=== PATIENT | male | born 1965 | race Caucasian/White ===

== ENCOUNTER 2020-03-09 07:33 | Day surgery (SDC) | payer BC ==
[~2020-03-09 07:33] MED LIST: Bupivacaine 0.25% 10 ML SDV ONE; Lactated Ringers 1,000 ML IV SCH; Lidocaine 2% 5 ML SDV ONE; Midazolam 1 MG/ML 2 ML SDV ONE; Ondansetron 4 MG/2 ML SDV ONE; Propofol 200 MG/20 ML SDV ONE; Sodium Chloride 0.9% 10 ML SDV IV PRN; Sodium Chloride 0.9% 10 ML Syringe FLUSH PRN; Sodium Chloride 0.9% 2.5 ML Syringe FLUSH PRN; ceFAZolin 2 GM in Premix Bag 1 BAG IV ONE; fentaNYL 250 MCG/5 ML SDV ONE
--- NOTE | 2020-03-09 08:06 | PCM.PREANE ---
Preanesthetic Assessment - Anesthesia/Transfusion/Family Hx Anesthesia History: Prior Anesthesia Without Reaction Family History of Anesthesia Reaction: No Transfusion History: No Prior Transfusion(s) - Review of Systems General: No Symptoms Pulmonary: No Symptoms Cardiovascular: No Symptoms Gastrointestinal: No Symptoms Neurological: No Symptoms Other: Reports: None - Physical Assessment NPO Status Date: 03/08/20 Height: 6 ft 3 in Weight: 121.109 kg ASA Class: 2 Mental Status: Alert & Oriented x3 Airway Class: Mallampati = 2 Dentition: Reports: Normal Dentition ROM/Head Extension: Full Lungs: Clear to Auscultation, Normal Respiratory Effort Cardiovascular: Regular Rate, Regular Rhythm - Lab Values: Laboratory Last Values SARS-CoV-2 RNA (ATIF) NEGATIVE (NEGATIVE) 03/09/20 05:58 - Allergies Allergies/Adverse Reactions: Allergies Allergy/AdvReac Type Severity Reaction Status Date / Time No Known Allergies Allergy Verified 03/04/20 08:47 - Acknowledgements Anesthesia Type Planned: General Anesthesia Pt an Appropriate Candidate for the Planned Anesthesia: Yes Alternatives and Risks of Anesthesia Discussed w Pt/Guardian: Yes Pt/Guardian Understands and Agrees with Anesthesia Plan: Yes Additional Comments: PMH: hx of afib x 2 yrs, in sinus rythem today, on metopralol, no anticoagulation except ASA, reports serious snoring but no prior dx of MAYURI. PLAN: ga/lma PreAnesthesia Questionnaire HEENT History: Reports: Allergic Rhinitis, Other (See Below) Other HEENT History: hx fx nose Cardiovascular History: Reports: Afib, Hypertension Other Cardiovascular History: A-fib in the past, no recent problems Respiratory History: Reports: Asthma, Other (See Below) Other Respiratory History: sports induced asthma Gastrointestinal History: Reports: None Genitourinary History: Reports: None Musculoskeletal History: Reports: Fracture Other Musculoskeletal History: hx fx wrist, ankle, toes and fingers Neurological History: Reports: None Psychiatric History: Reports: None Endocrine/Metabolic History: Reports: Obesity/BMI 30+ Hematologic History: Reports: None Immunologic History: Reports: None Oncologic (Cancer) History: Reports: None Dermatologic History: Reports: None - Past Surgical History Head Surgeries/Procedures: Reports: None HEENT Surgical History: Reports: Naso-Sinus Surgery Cardiovascular Surgical History: Reports: None Respiratory Surgical History: Reports: None GI Surgical History: Reports: Hernia, Inguinal Other GI Surgeries/Procedures: hx keyonna inguinal hernia repair Male Surgical History: Reports: Vasectomy Endocrine Surgical History: Reports: None Neurological Surgical History: Reports: None Musculoskeletal Surgical History: Reports: Arthroscopic Knee, Other (See Below) Other Musculoskeletal Surgeries/Procedures:: hx ulnar nerve reimplantation, hx knee arthroscopy Oncologic Surgical History: Reports: None Dermatological Surgical History: Reports: None - SUBSTANCE USE Tobacco Use Status *Q: Former Tobacco User Tobacco Use Within Last Twelve Months: Other (See Below) - HOME MEDS Home Medications: Home Meds Aspirin [Adult Aspirin Regimen] 81 mg PO DAILY 03/04/20 [History] Cholecalciferol (Vitamin D3) [Vitamin D3] 10,000 units PO DAILY 03/04/20 [History] Metoprolol Tartrate 25 mg PO DAILY 03/04/20 [History] - CURRENT (IN HOUSE) MEDS Current Meds: Current Medications Lactated Ringer's (Ringers, Lactated) 1,000 mls @ 100 mls/hr IV ASDIRECTED KODAK Sodium Chloride (Saline Flush) 10 ml FLUSH ASDIRECTED PRN PRN Reason: Keep Vein Open Sodium Chloride (Saline Flush) 2.5 ml FLUSH ASDIRECTED PRN PRN Reason: Keep Vein Open Sodium Chloride (Normal Saline) 10 ml IV ASDIRECTED PRN PRN Reason: IV Use Discontinued Medications Bupivacaine HCl (Sensorcaine-Mpf 0.25%) Confirm Administered Dose 10 ml .ROUTE .STK-MED ONE Stop: 03/09/20 07:28 Fentanyl (Sublimaze) Confirm Administered Dose 250 mcg .ROUTE .STK-MED ONE Stop: 03/09/20 07:08 Cefazolin Sodium/Dextrose 2 gm (/ Premix) 50 mls @ 100 mls/hr IV ONETIME ONE Stop: 03/09/20 00:30 Lidocaine (Xylocaine-Mpf 2%) Confirm Administered Dose 5 ml .ROUTE .STK-MED ONE Stop: 03/09/20 07:07 Midazolam HCl (Versed 1 Mg/Ml) Confirm Administered Dose 2 mg .ROUTE .STK-MED ONE Stop: 03/09/20 07:08 Ondansetron HCl (Zofran) Confirm Administered Dose 4 mg .ROUTE .STK-MED ONE Stop: 03/09/20 07:07 Propofol (Diprivan 20 Ml) Confirm Administered Dose 200 mg .ROUTE .STK-MED ONE Stop: 03/09/20 07:08
[2020-03-09] MEDS ORDERED: Glycopyrrolate 0.2 MG/ML SDV ONE (08:15)
[2020-03-09] MEDS ORDERED: ceFAZolin 1 GM Vial ONE ×2 (08:19→10:01)
[2020-03-09] MEDS ORDERED: Sodium Chloride 0.9% 0 ML ONE (08:19)
[2020-03-09] MEDS ORDERED: 50% Dextrose in Water 50 ML Syringe IVPUSH PRN (08:28)
[2020-03-09] MEDS ORDERED: Atropine 0.1 MG/ML 10 ML Syringe IVPUSH PRN ×2 (08:28)
[2020-03-09] MEDS ORDERED: Albuterol 0.083% 2.5 MG/3 ML Neb Soln NEB PRN (08:28)
[2020-03-09] MEDS ORDERED: fentaNYL 100 MCG/2 ML SDV IVPUSH PRN (08:28)
[2020-03-09] MEDS ORDERED: Naloxone 0.4 MG/ML Syringe IVPUSH PRN (08:28)
[2020-03-09] MEDS ORDERED: EPINEPHrine 1:10,000 1 MG/10 ML Syringe IVPUSH PRN (08:28)
[2020-03-09] MEDS ORDERED: Ketorolac 30 MG/ML SDV ONE (09:12)
[2020-03-09] MEDS ORDERED: Sodium Chloride 0.9% 20 ML ONE (10:01)
[2020-03-09] MEDS ORDERED: ePHEDrine 50 MG/ML SDV ONE (10:01)
--- NOTE | 2020-03-09 10:06 | PCM.POSTAN ---
POST ANESTHESIA ASSESSMENT - MENTAL STATUS Mental Status: Alert, Oriented - VITAL SIGNS Vital Signs: Last Vital Signs Temp 36.8 C 03/09/20 09:18 Pulse 83 03/09/20 09:58 Resp 10 L 03/09/20 09:58 BP 122/92 H 03/09/20 09:58 Pulse Ox 96 03/09/20 09:58 - RESPIRATORY Respiratory Status: Respiratory Rate WNL, Airway Patent, O2 Saturation Stable - CARDIOVASCULAR CV Status: Pulse Rate WNL, Blood Pressure Stable - GASTROINTESTINAL GI Status: No Symptoms - PAIN Pain Score: 0 - POST OP HYDRATION Hydration Status: Adequate & Stable - OBSERVATIONS Free Text/Narrative:: Patient very satisfied with his anesthetic, and has no complaints at this time. There were no apparent anesthetic complications at this time. Discharge to phase one per criteria.
--- NOTE | 2020-03-09 11:30 | OR ---
SURGEON: Brady Small M.D. DATE OF PROCEDURE: 03/09/2020 PREOPERATIVE DIAGNOSIS: Right-sided hydrocele. POSTOPERATIVE DIAGNOSIS: Right-sided hydrocele. OPERATION: Hydrocelectomy. DESCRIPTION OF PROCEDURE: The patient was given general anesthesia. He was in supine position, prepped and draped in sterile drapes. A transverse incision was made in the scrotal sac. The testicle was delivered after the hydrocele sac was emptied. A big portion of the hydrocele sac was excised. Bleeding points were fulgurated and sutured. The remaining hydrocele sac was wrapped around the cord structures and so that could not be done. The rest of the hydrocele sac was then sutured with a running suture of 3-0 chromic. Initial bleeding points were fulgurated. A small piece of Surgicel was put in. The wound was then closed after a small Ernul drain was left in, brought to the outside through a separate stab wound incision below the main incision. The wound was closed in two layers of 3-0 chromic for the muscle and that was a running stitch and also 3-0 chromic interrupted to close the skin. Estimated blood loss was minimal, under 20 mL. The patient tolerated the procedure well and was moved to recovery room in good condition. HEATHER / KENY /[id number]
[2020-03-10] MEDS ORDERED: CHOLECALCIFEROL 10000 UNIT PO SCH (09:00)
[2020-03-10] MEDS ORDERED: Metoprolol Tartrate 25 MG Tab PO SCH (09:00)
[2020-03-10] MEDS ORDERED: Aspirin 81 MG Tab.EC PO SCH (09:00)
== END 2020-03-09 11:05 | disposition home or self-care (01) ==
LOC: MW.SDS 07:33
PROVIDERS: ATTEND Urology
DX: N43.3 Hydrocele, unspecified (principal); Z01.812 Encounter for preprocedural laboratory examination; Z20.828 Contact with and (suspected) exposure to other viral communicable diseases; Z79.82 Long term (current) use of aspirin; Z79.899 Other long term (current) drug therapy; Z87.891 Personal history of nicotine dependence; Z68.33 Body mass index [BMI] 33.0-33.9, adult; E66.9 Obesity, unspecified; I10 Essential (primary) hypertension
CPT/HCPCS: 55040; 87635; 88302; J0690; J1885; J2001; J2250; J2405; J2704; J3010; J3490; J7120; 00920; U0002

== ENCOUNTER 2020-03-11 13:36 | Day surgery (SDC) | payer BC ==
[~2020-03-11 13:36] MED LIST changes: -Bupivacaine 0.25% 10 ML SDV ONE; -Lidocaine 2% 5 ML SDV ONE; -Midazolam 1 MG/ML 2 ML SDV ONE; -Ondansetron 4 MG/2 ML SDV ONE; -Propofol 200 MG/20 ML SDV ONE; -fentaNYL 250 MCG/5 ML SDV ONE
--- NOTE | 2020-03-11 14:12 | PCM.PREANE ---
Preanesthetic Assessment - Procedure Proposed Procedure: Patient Pod 2 Right hydrocele repair scheduled for hematoma evacuation. NPO 0945: Crackers, 1130 am pop. Will start case at 16:00. - Anesthesia/Transfusion/Family Hx Anesthesia History: Prior Anesthesia Without Reaction Family History of Anesthesia Reaction: No Transfusion History: No Prior Transfusion(s) Additional History: Having right groin pain from hematoma. - Review of Systems General: No Symptoms Pulmonary: No Symptoms Cardiovascular: No Symptoms Gastrointestinal: No Symptoms Neurological: No Symptoms - Physical Assessment NPO Status Date: 03/11/20 NPO Status Time: 09:45 (0945-crackers, 1130 pop) Height: 1.91 m Weight: 121.109 kg ASA Class: 2E Mental Status: Alert & Oriented x3 Airway Class: Mallampati = 2 Dentition: Reports: Normal Dentition ROM/Head Extension: Full Lungs: Clear to Auscultation, Normal Respiratory Effort Cardiovascular: Regular Rate, Regular Rhythm - Allergies Allergies/Adverse Reactions: Allergies Allergy/AdvReac Type Severity Reaction Status Date / Time No Known Allergies Allergy Verified 03/11/20 13:22 - Acknowledgements Anesthesia Type Planned: General Anesthesia Pt an Appropriate Candidate for the Planned Anesthesia: Yes Alternatives and Risks of Anesthesia Discussed w Pt/Guardian: Yes Pt/Guardian Understands and Agrees with Anesthesia Plan: Yes PreAnesthesia Questionnaire HEENT History: Reports: Allergic Rhinitis, Other (See Below) Other HEENT History: hx fx nose Cardiovascular History: Reports: Afib, Hypertension Other Cardiovascular History: A-fib in the past, no recent problems. Took metoprolol this morning. NO anticoagulation except ASA which he took this morning. Respiratory History: Reports: Asthma, Other (See Below) Other Respiratory History: sports induced asthma, reports "serious snoirng. , but no prior diagnosis of MAYURI. Gastrointestinal History: Reports: None Genitourinary History: Reports: None Musculoskeletal History: Reports: Fracture Other Musculoskeletal History: hx fx wrist, ankle, toes and fingers Neurological History: Reports: None Psychiatric History: Reports: None Endocrine/Metabolic History: Reports: Obesity/BMI 30+ (bmi 33.4) Hematologic History: Reports: None Immunologic History: Reports: None Oncologic (Cancer) History: Reports: None Dermatologic History: Reports: None - Past Surgical History Head Surgeries/Procedures: Reports: None HEENT Surgical History: Reports: Naso-Sinus Surgery Cardiovascular Surgical History: Reports: None Respiratory Surgical History: Reports: None GI Surgical History: Reports: Hernia, Inguinal Other GI Surgeries/Procedures: hx keyonna inguinal hernia repair Male Surgical History: Reports: Vasectomy, Other (See Below) Other Male Surgeries/Procedures: right hydrocele repair 03/09/20 Endocrine Surgical History: Reports: None Neurological Surgical History: Reports: None Musculoskeletal Surgical History: Reports: Arthroscopic Knee, Other (See Below) Other Musculoskeletal Surgeries/Procedures:: hx ulnar nerve reimplantation, hx knee arthroscopy Oncologic Surgical History: Reports: None Dermatological Surgical History: Reports: None - SUBSTANCE USE Tobacco Use Within Last Twelve Months: Smokeless Tobacco - HOME MEDS Home Medications: Home Meds Aspirin [Adult Aspirin Regimen] 81 mg PO DAILY 03/04/20 [History] Cholecalciferol (Vitamin D3) [Vitamin D3] 10,000 units PO DAILY 03/04/20 [History] Metoprolol Tartrate 25 mg PO DAILY 03/04/20 [History] - CURRENT (IN HOUSE) MEDS Current Meds: Current Medications Lactated Ringer's (Ringers, Lactated) 1,000 mls @ 100 mls/hr IV ASDIRECTED K[place]AK Sodium Chloride (Saline Flush) 10 ml FLUSH ASDIRECTED PRN PRN Reason: Keep Vein Open Sodium Chloride (Saline Flush) 2.5 ml FLUSH ASDIRECTED PRN PRN Reason: Keep Vein Open Sodium Chloride (Normal Saline) 10 ml IV ASDIRECTED PRN PRN Reason: IV Use Discontinued Medications Cefazolin Sodium/Dextrose 2 gm (/ Premix) 50 mls @ 100 mls/hr IV ONETIME ONE Stop: 03/11/20 13:56
[2020-03-11] MEDS ORDERED: Propofol 200 MG/20 ML SDV ONE (15:25)
[2020-03-11] MEDS ORDERED: fentaNYL 100 MCG/2 ML SDV ONE ×2 (15:25→16:30)
[2020-03-11] MEDS ORDERED: Midazolam 1 MG/ML 2 ML SDV ONE (15:25)
[2020-03-11] MEDS ORDERED: Ketorolac 30 MG/ML SDV ONE (15:27)
[2020-03-11] MEDS ORDERED: Lidocaine 2% 5 ML SDV ONE (15:27)
[2020-03-11] MEDS ORDERED: Ondansetron 4 MG/2 ML SDV ONE (15:27)
[2020-03-11] MEDS ORDERED: Glycopyrrolate 0.2 MG/ML SDV ONE (15:27)
[2020-03-11] MEDS ORDERED: Sodium Chloride 0.9% 20 ML ONE (15:32)
[2020-03-11] MEDS ORDERED: Acetaminophen 1,000 MG in Premix Bag 1 BAG IV PRN (15:32)
[2020-03-11] MEDS ORDERED: ceFAZolin 1 GM Vial ONE (15:32)
[2020-03-11] MEDS ORDERED: fentaNYL 100 MCG/2 ML SDV IVPUSH PRN (15:32)
[2020-03-11] MEDS ORDERED: Bupivacaine 0.25% 10 ML SDV ONE (17:00)
--- NOTE | 2020-03-11 17:46 | PCM.POSTAN ---
POST ANESTHESIA ASSESSMENT - MENTAL STATUS Mental Status: Alert - VITAL SIGNS Vital Signs: Last Vital Signs Temp 37.0 C 03/11/20 16:55 Pulse 97 03/11/20 17:18 Resp 16 03/11/20 17:20 BP 154/100 H 03/11/20 17:20 Pulse Ox 94 L 03/11/20 17:20 - RESPIRATORY Respiratory Status: Respiratory Rate WNL - CARDIOVASCULAR CV Status: Pulse Rate WNL - GASTROINTESTINAL GI Status: No Symptoms - POST OP HYDRATION Hydration Status: Adequate & Stable
--- NOTE | 2020-03-11 18:02 | PCM48HPAN ---
Post Anesthesia Note - EVALUATION WITHIN 48HRS OF ANESTHETIC Vital Signs in Normal Range: Yes Patient Participated in Evaluation: Yes Respiratory Function Stable: Yes Airway Patent: Yes Cardiovascular Function Stable: Yes Hydration Status Stable: Yes Pain Control Satisfactory: Yes Nausea and Vomiting Control Satisfactory: Yes Mental Status Recovered: Yes Vital Signs: Last Vital Signs Temp 37.0 C 03/11/20 16:55 Pulse 97 03/11/20 17:18 Resp 16 03/11/20 17:20 BP 154/100 H 03/11/20 17:20 Pulse Ox 94 L 03/11/20 17:20
--- NOTE | 2020-03-11 19:55 | OR ---
SURGEON: Brady Small M.D. DATE OF PROCEDURE: 03/11/2020 PREOPERATIVE DIAGNOSIS: Postop scrotal hematoma. POSTOPERATIVE DIAGNOSIS: Postop scrotal hematoma. OPERATION: Evacuation of hematoma without a drainage. DESCRIPTION OF PROCEDURE: The patient was given general anesthesia. He was in supine position. External genital area was prepped and draped in sterile drapes. The previous transverse incision that was used to repair the hydrocele sac was opened up. The whole entire area of surgery was inspected. There was a small area that appeared to be using that was sutured over with 3-0 chromic. The wound was irrigated and all the blood clots were evacuated. At the end, a 3/4-inch Kerrie drain was left in through the main incision on the side. The rest of the incision was closed. The previously existing drainage area below the testicle was enlarged and a 3/4-inch Kerrie drain was placed there as well. These were sutured in place using 3-0 chromic, same as was used to close the incision. With that done, the procedure was terminated. Estimated blood loss about possibly 60 mL. The patient tolerated the procedure well and was moved to recovery room in good condition. HEATHER / KENY /[id number]
[2020-03-12] MEDS ORDERED: Metoprolol Tartrate 25 MG Tab PO SCH (09:00)
[2020-03-12] MEDS ORDERED: Cholecalciferol (Vitamin D3) 25 MCG Tab PO SCH (09:00)
== END 2020-03-11 19:00 | disposition home or self-care (01) ==
LOC: MW.SDS 13:36 → MW.ICU 16:50 → MW.SDS 19:00
PROVIDERS: ATTEND Urology
DX: S30.22XA Contusion of scrotum and testes, initial encounter (principal); I48.91 Unspecified atrial fibrillation; N43.3 Hydrocele, unspecified; I10 Essential (primary) hypertension; J45.909 Unspecified asthma, uncomplicated; E66.9 Obesity, unspecified; Z79.82 Long term (current) use of aspirin; Z79.899 Other long term (current) drug therapy; Z98.890 Other specified postprocedural states; Z87.891 Personal history of nicotine dependence; Z68.33 Body mass index [BMI] 33.0-33.9, adult
CPT/HCPCS: 10140; J0690; J1885; J2001; J2250; J2405; J2704; J3010; J3490; J7120